=== PATIENT | female | born 1980 | race Two or more races ===

== ENCOUNTER → 2024-04-01 | Outpatient (BNVA) | payer MEDICAID, SELFPAY | END | disposition home or self-care (01) | PROVIDERS: PCP Nurse Practitioner Family; Referring Provider Nurse Practitioner Family; Visit Provider Nurse Practitioner Family | DX: M54.2 Cervicalgia (principal) | CPT/HCPCS: 99213 ==

== ENCOUNTER → 2024-04-08 | Outpatient (BNVA) | payer MEDICAID, SELFPAY | END | disposition home or self-care (01) | PROVIDERS: PCP Nurse Practitioner Family; Referring Provider Nurse Practitioner Family; Visit Provider Nurse Practitioner Family | DX: Z23 Encounter for immunization (principal) | CPT/HCPCS: 90471; 90686; 99213 ==

== ENCOUNTER → 2024-07-04 | Outpatient (BNVA) | payer MEDICAID, SELFPAY | END | disposition home or self-care (01) | PROVIDERS: PCP Nurse Practitioner Family; Referring Provider Nurse Practitioner Family; Visit Provider Nurse Practitioner Family | DX: N39.0 Urinary tract infection, site not specified (principal) | CPT/HCPCS: 81001; 99215 ==

== ENCOUNTER → 2024-07-12 | Outpatient (BNVA) | payer MEDICAID, SELFPAY | END | disposition home or self-care (01) | PROVIDERS: PCP Nurse Practitioner Family; Referring Provider Nurse Practitioner Family; Visit Provider Nurse Practitioner Family | DX: Z71.2 Person consulting for explanation of examination or test findings (principal); D22.9 Melanocytic nevi, unspecified | CPT/HCPCS: 99215 ==

== ENCOUNTER → 2024-07-18 | Outpatient (BNVA) | payer MEDICAID, SELFPAY | END | disposition home or self-care (01) | PROVIDERS: PCP Nurse Practitioner Family; Referring Provider Nurse Practitioner Family; Visit Provider Nurse Practitioner Family | DX: Z71.2 Person consulting for explanation of examination or test findings (principal); E11.9 Type 2 diabetes mellitus without complications; E66.9 Obesity, unspecified; E78.2 Mixed hyperlipidemia; E55.9 Vitamin D deficiency, unspecified | CPT/HCPCS: 99212; G0463 ==

== ENCOUNTER → 2024-08-05 | Outpatient (BNVA) | payer MEDICAID, SELFPAY | END | disposition home or self-care (01) | PROVIDERS: PCP Nurse Practitioner Family; Referring Provider Nurse Practitioner Family; Visit Provider Nurse Practitioner Family | DX: E11.69 Type 2 diabetes mellitus with other specified complication (principal); E66.9 Obesity, unspecified; Z23 Encounter for immunization; E78.2 Mixed hyperlipidemia | CPT/HCPCS: 90471; 90472; 90677; 90715; 99215; J90677 ==

== ENCOUNTER 2024-08-08 08:14 | Outpatient (RCR) | payer MEDICAID, SELFPAY | END 2024-09-07 23:59 | disposition home or self-care (01) | LOC: SCTC 08:14 | PROVIDERS: PCP Nurse Practitioner Family; Referring Provider Nurse Practitioner Family; Visit Provider Nurse Practitioner Family | DX: D50.9 Iron deficiency anemia, unspecified (principal) | CPT/HCPCS: 99213; G0463 ==

== ENCOUNTER → 2024-08-16 | Outpatient (BNVA) | payer MEDICAID, SELFPAY | END | disposition home or self-care (01) | PROVIDERS: PCP Nurse Practitioner Family; Referring Provider Nurse Practitioner Family; Visit Provider Nurse Practitioner Family | DX: E11.69 Type 2 diabetes mellitus with other specified complication (principal); Z71.3 Dietary counseling and surveillance; E66.9 Obesity, unspecified; Z68.35 Body mass index [BMI] 35.0-35.9, adult | CPT/HCPCS: 83036; 99214 ==

== ENCOUNTER → 2024-09-20 | Outpatient (BNVA) | payer MEDICAID, SELFPAY | END | disposition home or self-care (01) | PROVIDERS: PCP Nurse Practitioner Family; Referring Provider Nurse Practitioner Family; Visit Provider Nurse Practitioner Family | DX: E11.69 Type 2 diabetes mellitus with other specified complication (principal); Z71.3 Dietary counseling and surveillance; Z68.30 Body mass index [BMI] 30.0-30.9, adult; N92.0 Excessive and frequent menstruation with regular cycle; E66.9 Obesity, unspecified | CPT/HCPCS: 99214 ==

== ENCOUNTER → 2024-10-18 | Outpatient (BNVA) | payer MEDICAID, SELFPAY | END | disposition home or self-care (01) | PROVIDERS: PCP Internal Medicine; Referring Provider Internal Medicine; Visit Provider Internal Medicine | DX: E11.9 Type 2 diabetes mellitus without complications (principal); E66.9 Obesity, unspecified; D56.3 Thalassemia minor; E55.9 Vitamin D deficiency, unspecified; Z68.34 Body mass index [BMI] 34.0-34.9, adult; E78.2 Mixed hyperlipidemia; E87.20 Acidosis, unspecified | CPT/HCPCS: 99213 ==

== ENCOUNTER → 2024-10-21 | Outpatient (BNVA) | payer MEDICAID, SELFPAY | END | disposition home or self-care (01) | PROVIDERS: PCP Nurse Practitioner Family; Referring Provider Nurse Practitioner Family; Visit Provider Nurse Practitioner Family | DX: E11.9 Type 2 diabetes mellitus without complications (principal); E66.9 Obesity, unspecified; Z68.35 Body mass index [BMI] 35.0-35.9, adult; Z71.3 Dietary counseling and surveillance | CPT/HCPCS: 99213 ==

== ENCOUNTER → 2024-10-25 | Outpatient (BNVA) | payer MEDICAID, SELFPAY | END | disposition home or self-care (01) | PROVIDERS: PCP Nurse Practitioner Family; Referring Provider Nurse Practitioner Family; Visit Provider Nurse Practitioner Family | DX: Z71.2 Person consulting for explanation of examination or test findings (principal); E11.9 Type 2 diabetes mellitus without complications; E66.9 Obesity, unspecified; E78.2 Mixed hyperlipidemia | CPT/HCPCS: 99212; G0463 ==

== ENCOUNTER 2024-11-07 09:49 | Outpatient (RCR) | payer MEDICAID, SELFPAY | END 2024-11-07 23:59 | disposition home or self-care (01) | LOC: SCTC 09:49 | PROVIDERS: PCP Nurse Practitioner Family; Referring Provider Nurse Practitioner Family; Visit Provider Nurse Practitioner Family | DX: D50.9 Iron deficiency anemia, unspecified (principal) | CPT/HCPCS: 99212; G0463 ==

== ENCOUNTER → 2024-11-08 | Outpatient (CLI) | payer MEDICAID, SELFPAY ==
--- NOTE | 2024-11-08 14:30 | XR_ITS ---
Examination: Pelvic ultrasound, transabdominal, complete Technique: Transabdominal ultrasound of the pelvis performed using grayscale imaging Date and time of exam: November 9992024, 1426 hours Comparison January 26, 2023 INDICATIONS: Irregular heavy menses 2 years FINDINGS: Uterus 11.9 cm irregular endometrium 0.6 cm which appears to extend to the myometrium Right ovary 3.0 cm arterial flow Left ovary 3.2 cm arterial flow IMPRESSION: Abnormal endometrium, irregular in contour and appearing to invade or extend into the myometrium Recommend MRI pelvis follow-up pre and postcontrast to exclude early malignant neoplasm of the endometrium
--- NOTE | 2024-11-08 14:30 | XR_ITS ---
Examination: Transvaginal ultrasound of the pelvis, complete Technique: Transvaginal sonographic images pelvis performed using hardy scale imaging Exam date and time: November 08, 2024 1433 hours INDICATIONS: Irregular heavy menses beginning 2 years ago FINDINGS: Uterus 10.1 cm endometrial stripe 2.0 cm The endometrium is irregular and appears to be extending into the myometrium, clinical correlation advised Right ovary 2.9 cm arterial flow 11 mm follicular cyst Left ovary obscured by bowel gas IMPRESSION: Abnormal irregular endometrium which appears to be extending into the myometrium Recommend MRI pelvis follow-up pre and postcontrast to exclude early malignant neoplasm of the endometrium.
== END | disposition home or self-care (01) ==
LOC: CDIM 14:08
PROVIDERS: PCP Nurse Practitioner Family; Referring Provider Nurse Practitioner Family; Visit Provider Nurse Practitioner Family
DX: N85.00 Endometrial hyperplasia, unspecified (principal)
CPT/HCPCS: 76830; 76856

== ENCOUNTER → 2024-11-12 | Outpatient (BNVA) | payer MEDICAID, SELFPAY | END | disposition home or self-care (01) | PROVIDERS: PCP Nurse Practitioner Family; Referring Provider Nurse Practitioner Family; Visit Provider Nurse Practitioner Family | DX: Z71.2 Person consulting for explanation of examination or test findings (principal); N85.9 Noninflammatory disorder of uterus, unspecified | CPT/HCPCS: 99214 ==

== ENCOUNTER → 2024-11-18 | Outpatient (BNVA) | payer MEDICAID, SELFPAY | END | disposition home or self-care (01) | PROVIDERS: PCP Nurse Practitioner Family; Referring Provider Nurse Practitioner Family; Visit Provider Nurse Practitioner Family | DX: E11.9 Type 2 diabetes mellitus without complications (principal); Z71.3 Dietary counseling and surveillance; E66.9 Obesity, unspecified; Z68.35 Body mass index [BMI] 35.0-35.9, adult | CPT/HCPCS: 99213 ==

== ENCOUNTER → 2024-12-16 | Outpatient (BNVA) | payer MEDICAID, SELFPAY | END | disposition home or self-care (01) | PROVIDERS: PCP Nurse Practitioner Primary Care; Referring Provider Nurse Practitioner Primary Care; Visit Provider Nurse Practitioner Primary Care | DX: E11.9 Type 2 diabetes mellitus without complications (principal); E66.9 Obesity, unspecified; E78.2 Mixed hyperlipidemia; Z68.35 Body mass index [BMI] 35.0-35.9, adult | CPT/HCPCS: 99213 ==

== ENCOUNTER → 2024-12-19 | Outpatient (CLI) | payer MEDICAID, SELFPAY ==
--- NOTE | 2024-12-19 10:45 | XR_ITS ---
Examination: Screening digital mammography, bilateral Computer aided detection 3-D breast Tomosynthesis, bilateral Date and time of exam: December 19, 2024 1101 hours Compared to mammograms dating to June 23, 2021 Indication: Screening Technique: Nonmagnified MLO, CC views of the breasts to been obtained, reconstructed from 3-D Tomosynthesis images. R2 computer aided detection program utilized for evaluation of suspicious masses and/or abnormal calcifications. 3-D Tomosynthesis images obtained. Findings: The breasts are heterogeneously dense, which may obscure small masses 15 mm round focal asymmetry upper outer left breast Benign calcifications Impression: BI-RADS Category 0: Incomplete: Need additional imaging evaluation Recommend follow-up spot tomographic views of 15 mm focal asymmetry upper outer left breast as well as left breast sonography to complete the workup
== END | disposition home or self-care (01) ==
LOC: CDIM 10:44
PROVIDERS: PCP Nurse Practitioner Family; Referring Provider Nurse Practitioner Family; Visit Provider Nurse Practitioner Family
DX: Z12.31 Encounter for screening mammogram for malignant neoplasm of breast (principal); N64.89 Other specified disorders of breast
CPT/HCPCS: 77063; 77067

== ENCOUNTER → 2024-12-20 | Outpatient (BNVA) | payer MEDICAID, SELFPAY | END | disposition home or self-care (01) | PROVIDERS: PCP Nurse Practitioner Family; Referring Provider Nurse Practitioner Family; Visit Provider Nurse Practitioner Family | DX: R92.8 Other abnormal and inconclusive findings on diagnostic imaging of breast (principal) | CPT/HCPCS: 99214 ==

== ENCOUNTER 2025-01-01 10:25 | Outpatient (AMB) | payer MEDICAID, SELFPAY ==
[2025-01-01 10:43] VITALS: BP 121/82; PULSE 71; RESP 16; TEMP 36.2; O2SAT 98; BMI 35.2
--- NOTE | 2025-01-01 10:43 | AMB.GYNCLNOT ---
Vital Signs 01/01/25 10:43 Height 1.55 m Height Method Stated Weight 84.538 kg Weight Measurement Method Standing Scale BMI 35.2 BP 121/82 Blood Pressure Source Automatic Cuff Blood Pressure Location Left Upper Arm Position Sitting Respiration 16 Pulse 71 Pulse Source Monitor Temp 97.2 F Temp Source Oral Pulse Oximetry (%) 98 Oxygen Delivery Method Room Air Allergies/Home Meds Allergies & Medications Allergies No Known Allergies Allergy (Verified 01/01/25 10:44) Medication Reconciliation blood sugar diagnostic #100 ea 07/18/24 [Rx Confirmed 01/01/25] blood-glucose meter #1 ea 07/18/24 [Rx Confirmed 01/01/25] lancets #200 ea 07/18/24 [Rx Confirmed 01/01/25] ergocalciferol (vitamin D2) 1,250 mcg (50,000 unit) capsule 1,250 mcg PO QWEEK #4 caps 10/18/24 [Rx Confirmed 01/01/25] ferrous sulfate 325 mg (65 mg iron) tablet 325 mg PO QDAY #30 tabs 10/18/24 [Rx Confirmed 01/01/25] evolocumab 140 mg/mL subcutaneous pen injector (Repatha SureClick) 140 mg subcut .twice a month 30 days #1 mL 12/16/24 [Rx Confirmed 01/01/25] ezetimibe 10 mg tablet 10 mg PO QDAY #90 tabs 12/16/24 [Rx Confirmed 01/01/25] metformin 500 mg tablet 500 mg PO QDAY #90 tabs 12/16/24 [Rx Confirmed 01/01/25] tirzepatide 7.5 mg/0.5 mL subcutaneous pen injector (Mounjaro) 7.5 mg (0.5 mL) subcut QWEEK 4 weeks #2 mL 12/16/24 [Rx Confirmed 01/01/25] Intake Visit Data Collection New Patient or Established: Established Patient (seen at [facility] within 3 years) Reason for Visit:: Seen by Clinical Staff ONLY (RN/MA): No Auxiliary Equipment Operator Required: No Do You Feel Safe at Home: Yes Authorities Contacted: N/A PCP or OBGYN visit in last 3 months: Yes Date of Last PCP or OBGYN visit: 12/20/24 Hx Now: Yes Are you currently on any form of Control: No Pain Present Currently: No Pain Scale Used: Guerra-Smith/Numerical Pain scale:: 0 Smoking Status Smoking Status: Never smoker Would you like additional Smoking Cessation Counseling?: No 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 Menstrual regularity: regular Flow: normal Monthly: Yes Age at menarche: 12 Menopausal: No Currently sexually 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 1. Little interest or pleasure in doing things: not at all 2. Feeling down, depressed, or hopeless: not at all Total score: 0 PHQ-9 3. Trouble falling or staying asleep, or sleeping too much: Not at all 4. Feeling tired or having little energy: Not at all 5. Poor appetite or overeating: Not at all 6. Feeling bad about yourself - or that you are a failure or have let yourself or your family down: Not at all 7. Trouble concentrating on things, such as reading the newspaper or watching television: Not at all 8. Moving or speaking so slowly that other people could have noticed? - Or the opposite - being so fidgety or restless that you have been moving around a lot more than usual: not at all 9. Thoughts that you would be better off or of hurting yourself in some way: Not at all Total score: 0 If you checked off any problems, how difficult have these problems made it for you to do your work, take care of things at home, or get along with other people?: not difficult at all Source: Developed by Drs. Kristian Khan, Neeru Salcedo, Chris Rosales and colleagues, with an educational andrew from [employer]. Depression screen completed yes Social History Living Situation History Marital Status: Single Lives With: Spouse Housing: House Tobacco History Smoking Status: Never smoker Second Hand Smoke Exposure: No Alcohol History Alcohol Intake: Current Alcohol Intake Frequency: holidays/special occasions only Substance Use History Substance Use: NONE Domestic Abuse History Do You Feel Safe at Home: Yes History of Present Illness HPI Narrative I, Satnam Shabbir, have obtained verbal consent from the patient, to be recorded during this encounter which may include, but not limited to, medical history, examination, treatment plans, and relevant health information.? Patient was informed that recording will be read and reviewed by myself before inclusion in the medical chart. The patient is a 44-year-old female presenting for an inflammatory disease of the uterus consult. She was seen by a different provider at the [facility] and was referred here due to findings on a transvaginal ultrasound. The ultrasound revealed a uterus measuring 10.1 cm, an endometrial stripe of 2 cm, and an irregular endometrium that appears to be extending into the myometrium. Clinical correlation was advised. The right ovary measured 2.9 cm with arterial flow and an 11 mm follicular cyst. The left ovary was obscured by bowel gas. These findings are highly suspicious for a malignant neoplasm of the endometrium, indicating the need for an endometrial biopsy. She has been experiencing irregular bleeding and anemia. Her menstrual cycles have been regular, and she has not yet reached menopause. Gynecological History discussed: - Cycle length: Regular RESULTS Imaging - Transvaginal ultrasound: Uterus measuring 10.1 cm, endometrial stripe of 2 cm. Endometrium is irregular and appears to be extending into the myometrium. Right ovary 2.9 cm with arterial flow, 11 mm follicular cyst. Left ovary obscured by bowel gas. Exam General General Appearance: alert, in no apparent distress and healthy appearing Head Head exam: atraumatic Neck Neck exam: Present normal inspection and trachea midline Chest Chest inspection: Present normal inspection and symmetric chest wall rise External exam: Present normal external exam; Absent tenderness Neuro Neurological exam: Present oriented X3 Psych Psychiatric exam: Present normal affect and normal mood Office Procedures OBC Clinic LOC & Office Proc's Nursing/Assessment Patient Status: Established Patient OB Clinic Nursing Assessment: Medication Reconciliation, Update PMH in EMR and Vital Signs OB Clinic Coordination of Care: Education Complex Pt/Fam, Consent,records obtained, informed consent, Lab and Imaging orders and Staff clarify orders Special Needs: Heart tones Established Patient Charge Established Patient Point Assignment: 110 Established Patient Point Charge: EP Level 3 (80-115) Assessment & Plan Diagnosis / Problem List (1) Endometrial hyperplasia: Status: Acute Plan 1. Inflammatory disease of the uterus: - The ultrasound results indicate a thickened endometrium extending into the myometrium, which is concerning for potential uterine cancer. - The ultrasound findings include a uterus measuring 10.1 cm, an endometrial stripe of 2 cm, and an irregular endometrium extending into the myometrium. Right ovary measures 2.9 cm with arterial flow and an 11 mm follicular cyst. Left ovary obscured by bowel gas. - A biopsy of the uterus under anesthesia in the hospital is recommended. The procedure will involve inserting a camera to examine the uterus and obtain biopsies. An MRI is scheduled for 01/07/2025 to gather more information. - The biopsy will be scheduled as soon as insurance approval is obtained, with an expected wait time of less than a week once approved.
== END 2025-01-01 10:52 | disposition home or self-care (01) ==
LOC: HODSOBC 10:25
PROVIDERS: PCP Nurse Practitioner Family; Referring Provider Nurse Practitioner Family; Supervising Provider Obstetrics & Gynecology; Visit Provider Obstetrics & Gynecology
DX: N85.00 Endometrial hyperplasia, unspecified (principal); N83.01 Follicular cyst of right ovary
CPT/HCPCS: 99213; G0463

== ENCOUNTER 2025-01-22 08:13 | Outpatient (AMB) | payer MEDICAID, SELFPAY ==
[2025-01-22 08:32] VITALS: BP 110/79; PULSE 71; RESP 17; TEMP 36.3; O2SAT 98; BMI 35.3
--- NOTE | 2025-01-22 08:32 | GYNCLNT_ITS ---
Vital Signs 01/22/25 08:32 Height 1.55 m Height Method Stated Weight 84.878 kg Weight Measurement Method Standing Scale BMI 35.3 BP 110/79 Blood Pressure Source Automatic Cuff Blood Pressure Location Right Upper Arm Position Sitting Respiration 17 Pulse 71 Pulse Source Monitor Temp 97.4 F Temp Source Temporal Artery Scan Pulse Oximetry (%) 98 Oxygen Delivery Method Room Air Allergies/Home Meds Allergies & Medications Allergies No Known Allergies Allergy (Verified 01/22/25 08:35) Medication Reconciliation blood sugar diagnostic #100 ea 07/18/24 [Rx Confirmed 01/22/25] blood-glucose meter #1 ea 07/18/24 [Rx Confirmed 01/22/25] lancets #200 ea 07/18/24 [Rx Confirmed 01/22/25] ergocalciferol (vitamin D2) 1,250 mcg (50,000 unit) capsule 1,250 mcg PO QWEEK #4 caps 10/18/24 [Rx Confirmed 01/22/25] ferrous sulfate 325 mg (65 mg iron) tablet 325 mg PO QDAY #30 tabs 10/18/24 [Rx Confirmed 01/22/25] tirzepatide 7.5 mg/0.5 mL subcutaneous pen injector (Mounjaro) 7.5 mg subcut QWEEK 01/17/25 [History Confirmed 01/22/25] Intake Visit Data Collection New Patient or Established: Established Patient (seen at [facility] within 3 years) Reason for Visit:: PRE OP Seen by Clinical Staff ONLY (RN/MA): No Dredge Lever Operator Required: Yes Dredge Lever Operator's name/title: LANA VIDAL MA Do You Feel Safe at Home: Yes Authorities Contacted: N/A PCP or OBGYN visit in last 3 months: Yes Date of Last PCP or OBGYN visit: 01/17/25 Hx Now: No Are you currently on any form of Control: No Pain Present Currently: No Smoking Status Smoking Status: Never smoker 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 Menstrual regularity: regular Flow: heavy Monthly: Yes How many days does period last: 5 Age at menarche: 12 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 1. Little interest or pleasure in doing things: not at all 2. Feeling down, depressed, or hopeless: not at all Total score: 0 PHQ-9 3. Trouble falling or staying asleep, or sleeping too much: Not at all 4. Feeling tired or having little energy: Not at all 5. Poor appetite or overeating: Not at all 6. Feeling bad about yourself - or that you are a failure or have let yourself or your family down: Not at all 7. Trouble concentrating on things, such as reading the newspaper or watching television: Not at all 8. Moving or speaking so slowly that other people could have noticed? - Or the opposite - being so fidgety or restless that you have been moving around a lot more than usual: not at all 9. Thoughts that you would be better off or of hurting yourself in some way: Not at all Total score: 0 If you checked off any problems, how difficult have these problems made it for you to do your work, take care of things at home, or get along with other people?: not difficult at all Source: Developed by Drs. Kristian Khan, Neeru Salcedo, Chris Rosales and colleagues, with an educational andrew from [employer]. Depression screen completed yes Social History Living Situation History Marital Status: Lives With: Spouse Housing: House Tobacco History Smoking Status: Never smoker Second Hand Smoke Exposure: No Alcohol History Alcohol Intake: Current Alcohol Intake Frequency: holidays/special occasions only Substance Use History Substance Use: NONE Domestic Abuse History Do You Feel Safe at Home: Yes History of Present Illness HPI Narrative Selina Tomlinson presents for a preoperative visit in preparation for a hysteroscopic guided endometrial biopsy scheduled for tomorrow. The patient reports taking her prescribed medications and mentions experiencing bacterial- related food smell issues. She has completed all required preoperative blood work. The patient had questions about the planned procedure, specifically asking about burning procedures and uterus removal, which were clarified as not being part of tomorrow's biopsy procedure. The biopsy is being performed to obtain tissue samples before determining next treatment steps, as different treatments would be indicated depending on whether precancerous or cancerous changes are found. ROS: Not documented. Exam General General Appearance: alert, in no apparent distress and healthy appearing Head Head exam: atraumatic Neck Neck exam: Present normal inspection and trachea midline Chest Chest inspection: Present normal inspection and symmetric chest wall rise External exam: Present normal external exam; Absent tenderness Neuro Neurological exam: Present oriented X3 Psych Psychiatric exam: Present normal affect and normal mood Office Procedures OBC Clinic LOC & Office Proc's Nursing/Assessment Patient Status: Established Patient OB Clinic Nursing Assessment: Medication Reconciliation, Update PMH in EMR and Vital Signs OB Clinic Coordination of Care: Complex Care and Chronic Disease 1-5, Education Complex Pt/Fam, Consent,records obtained, informed consent, Results/Orders obtained and Staff clarify orders Established Patient Charge Established Patient Point Assignment: 95 Established Patient Point Charge: EP Level 3 (80-115) Assessment & Plan Diagnosis / Problem List (1) Endometrial hyperplasia: Status: Acute (2) Acquired abnormality of uterus: Status: Acute Plan Preoperative evaluation for hysteroscopic endometrial biopsy: - Patient scheduled for hysteroscopic guided endometrial biopsy. - Diagnostic intervention to obtain tissue samples from the uterus using camera guidance. - Biopsy results will determine next steps in management as treatment approach varies significantly if precancerous or cancerous tissue is identified. - Patient has completed required preoperative blood work and appears ready for procedure. Plan: - Proceed with hysteroscopic guided endometrial biopsy as scheduled. - Procedure expected to take approximately 10 minutes. - Patient will be discharged home same day. - Biopsy results will be available in approximately 3 days. - Call patient with biopsy results once available. - Further treatment decisions will be based on biopsy findings.
== END 2025-01-22 09:10 | disposition home or self-care (01) ==
LOC: HODSOBC 08:13
PROVIDERS: Supervising Provider Obstetrics & Gynecology; Visit Provider Obstetrics & Gynecology
DX: N85.00 Endometrial hyperplasia, unspecified (principal); N85.8 Other specified noninflammatory disorders of uterus; E10.9 Type 1 diabetes mellitus without complications; Z79.85 Long-term (current) use of injectable non-insulin antidiabetic drugs
CPT/HCPCS: 99213; G0463

== ENCOUNTER 2025-01-23 05:45 | Day surgery (SDC) | payer MEDICAID, SELFPAY ==
[2025-01-17 07:51] VITALS: BMI 33.2
--- NOTE | 2025-01-17 08:00 | EKG_ITS ---
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
[2025-01-17 08:27] LABS: Basophils # (Auto) 0.0 Thou/mm3 (0.0-0.2); Basophils % (Auto) 0 % (0-2.5); Eosinophils # (Auto) 0.1 Thou/mm3 (0.0-0.5); Eosinophils % (Auto) 1 % (0-10); Hematocrit 38.8 % (36.0-46.0); Hemoglobin 12.5 g/dL (12.0-16.0); Immature Granulocytes Auto 0.03 Thou/mm3 (0.00-0.00); Lymphocytes # (Auto) 3.7 Thou/mm3 (1.0-4.8); Lymphocytes % (Auto) 32 % (10-50); Mean Corpuscular HGB Conc 32.2 g/dl (31.0-37.0); Mean Corpuscular Hemoglobin 22.4 pg (25.0-35.0); Mean Corpuscular Volume 70 fL (80-100); Monocytes # (Auto) 0.8 Thou/mm3 (0.0-0.8); Monocytes % (Auto) 6 % (0-12); Neutrophils # (Auto) 7.1 Thou/mm3 (1.8-7.7); Neutrophils % (Auto) 61 % (37-80); Nucleated Red Blood Cell # 0.00 Thou/mm3 (0.00-0.00); Nucleated Red Blood Cell % 0 /100 WBC (0); Platelet Count 366 Thou/mm3 (140-440); RDW Standard Deviation 38.0 fL (36.4-46.3); Red Blood Count 5.58 Miln/mm3 (4.00-5.20); White Blood Count 11.7 Thou/mm3 (3.6-11.0)
[2025-01-17 08:43] LABS: Alanine Aminotransferase 22 U/L (10-49); Albumin, Serum 5.0 gm/dL (3.5-5.0); Albumin/Globulin Ratio 1.4 (1.2-2.2); Alkaline Phosphatase 106 U/L (46-116); Anion Gap 10 (7-16); Aspartate Amino Transferase 26 U/L (0-34); BUN/Creatinine Ratio 14 Ratio (12-20); Bilirubin,Total 0.5 mg/dL (0.3-1.2); Blood Urea Nitrogen 13 mg/dL (9-23); Calcium 9.7 mg/dL (8.3-10.6); Calcium (Corrected) 9.7 mg/dL (8.5-10.1); Carbon Dioxide 26.1 mMol/L (20.0-31.0); Chloride 102 mMol/L (98-107); Creatinine (Component) 0.9 mg/dL (0.6-1.3); Estimated Creatinine Clearance 82.4 mL/min (>60); Globulin 3.7 gm/dL (2.3-3.5); Glucose 95 mg/dL (74-106); Osmolality,Calculated 275 (275-295); Potassium 4.1 mMol/L (3.4-5.1); Sodium 138 mMol/L (136-145); Total Protein 8.7 gm/dL (5.7-8.2); eGFR > 60 See Note
[2025-01-17 08:46] LABS: HCG,Qualitative Serum Negative
--- NOTE | 2025-01-22 13:01 | SUR.PREOP ---
Pt notified to come in at 0545 tomorrow for surgery.
[2025-01-23] VITALS (7 sets, daily range): BP systolic 105–128; BP diastolic 66–81; PULSE 71–87; RESP 12–16; TEMP 36.2–36.6; O2SAT 96–99; BMI 34.4
--- NOTE | 2025-01-23 08:22 | PD.GYNPROC ---
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 The patient was brought to the procedure room and identified with two patient identifiers. She was placed in the dorsal lithotomy position. The perineum was prepped and draped in sterile fashion. A bimanual exam was performed to assess uterine position. A self-retaining speculum was inserted into the vagina, and the cervix was visualized. The cervix was grasped with a tenaculum or atraumatic forceps and placed under traction. A uterine sound was used to assess uterine depth and direction. The cervix was then serially dilated to 5?7 mm. The hysteroscope was primed with sterile fluid and introduced into the uterine cavity under direct visualization. And a systematic inspection was performed. The endometrium appeared thickened. No obvious intracavitary mass or synechiae were noted. The tubal ostia were visualized bilaterally. An endometrial sampling device was introduced under hysteroscopic guidance. Targeted biopsies were obtained from the anterior, posterior, and fundal aspects of the endometrial cavity. All specimens were sent to pathology. The hysteroscope and instruments were removed. The cervix was inspected and noted to be hemostatic. The patient tolerated the procedure well and was transferred to recovery in stable condition. All instruments and supplies were accounted for. Estimated blood loss (ml): 5 Complications: none Surgical staff Operation Date: 01/23/25 07:35 <No data on this case meets the specified criteria> Diagnosis Discharge Diagnosis (1) Endometrial hyperplasia: Status: Acute Problem List Completed Was Problem List Reviewed/Reconciled?: Yes
--- NOTE | 2025-01-23 08:32 | SUR.PHASEI ---
0832: Pt. AAOx4, vitals stable, breathing unlabored, no complaint of pain or nausea, peripad in place no active bleed noted, report received from MD Kulkarni and Sarah IBARRA.
--- NOTE | 2025-01-23 09:28 | SUR.PHASEII ---
0928: Pt. AAOx4, vitals stable, breathing unlabored, no complaint of pain or nausea, peripad in place CDI no active bleed noted, pt. tolerated sips of water well, pt. ambulated to wheelchair with steady gait and no assist, no complications. Gave discharge instructions to the pt. and her ride using a ldr rn, pt. and her ride both verbalized understanding and had no further questions. Pt. left with all personal belongings.
== END 2025-01-23 09:28 | disposition home or self-care (01) ==
PROVIDERS: PCP Nurse Practitioner Family; Referring Provider Obstetrics & Gynecology; Visit Provider Obstetrics & Gynecology
PROC: 0U5B8ZZ Destruction of Endometrium, Via Natural or Artificial Opening Endoscopic (ICD-10-PCS; CPT 58563; principal; 2025-01-23 07:30)
DX: N85.00 Endometrial hyperplasia, unspecified (principal); N92.0 Excessive and frequent menstruation with regular cycle; Z01.810 Encounter for preprocedural cardiovascular examination
CPT/HCPCS: 58558; 36415; 80053; 84703; 85025; 86850; 86900; 86901; 93005; A4217; A4649; J0131; J1100; J2371; J2704; J2765; J3010; J3490

== ENCOUNTER → 2025-01-24 | Outpatient (CLI) | payer MEDICAID, SELFPAY ==
[2025-01-23 12:36] LABS: HCG Qualitative,Urine Negative
--- NOTE | 2025-01-24 08:30 | XR_ITS ---
Examination: MRI pelvis with intravenous contrast. MRI pelvis without intravenous contrast. Date and time of exam: January 24, 2025, 0857 hours INDICATIONS: Diagnosis acquired abnormality of uterus other specified noninflammatory disorders of the uterus, transvaginal pelvic sonogram November 08, 2024 abnormal irregular thickened endometrium which appears to extend into the myometrium on pelvic sonogram November 08, 2024 Technique: Multiple axial, sagittal and coronal sections of the pelvis obtained. Transverse images, TR 6020, TE 107. T1 weighted transverse images, TR 582, TE 9.5. T2-weighted sagittal images, TR 4000, TE 105. T2-weighted sagittal images, TR 4000, TE 5. Coronal images, TR 4210, TE 107. Axial and coronal images are obtained post 16 cc intravenous injection, gadolinium. Findings: Retroverted uterus, 10 cm x 4.9 cm x 4.5 cm Endometrial stripe measures 15 mm with minimal irregularity No enhancing discrete uterine mass Mild free fluid in the pelvis Right ovary 3.0 x 2.9 cm with 23 x 23 mm simple cyst Left ovary is not visualized IMPRESSION: Endometrial stripe 15 mm with minimal irregularity, findings are not diagnostic for malignant neoplasm of the endometrium Recommend 6-month follow-up transvaginal pelvic sonography
== END | disposition home or self-care (01) ==
LOC: SMRI 08:14
PROVIDERS: Referring Provider Nurse Practitioner Family; Visit Provider Nurse Practitioner Family
DX: N85.8 Other specified noninflammatory disorders of uterus (principal); Z32.00 Encounter for pregnancy test, result unknown
CPT/HCPCS: 72197; 81025; A9577

== ENCOUNTER → 2025-01-27 | Outpatient (BNVA) | payer MEDICAID, SELFPAY | END | disposition home or self-care (01) | PROVIDERS: PCP Nurse Practitioner Family; Referring Provider Nurse Practitioner Family; Visit Provider Nurse Practitioner Family | DX: E11.9 Type 2 diabetes mellitus without complications (principal); E66.9 Obesity, unspecified; Z28.21 Immunization not carried out because of patient refusal | CPT/HCPCS: 83036; 99214 ==

== ENCOUNTER → 2025-01-30 | Outpatient (BNVA) | payer MEDICAID, SELFPAY | END | disposition home or self-care (01) | PROVIDERS: PCP Nurse Practitioner Family; Referring Provider Nurse Practitioner Family; Visit Provider Nurse Practitioner Family | DX: Z71.1 Person with feared health complaint in whom no diagnosis is made (principal); N85.00 Endometrial hyperplasia, unspecified; Z28.21 Immunization not carried out because of patient refusal | CPT/HCPCS: 99213 ==

== ENCOUNTER → 2025-02-26 | Outpatient (BNVA) | payer MEDICAID, SELFPAY | END | disposition home or self-care (01) | PROVIDERS: PCP Nurse Practitioner Family; Referring Provider Nurse Practitioner Family; Visit Provider Nurse Practitioner Family | DX: Z00.01 Encounter for general adult medical examination with abnormal findings (principal); E78.2 Mixed hyperlipidemia; E55.9 Vitamin D deficiency, unspecified; E66.811 Obesity, class 1; Z68.34 Body mass index [BMI] 34.0-34.9, adult; Z28.21 Immunization not carried out because of patient refusal; Z13.29 Encounter for screening for other suspected endocrine disorder; Z11.3 Encounter for screening for infections with a predominantly sexual mode of transmission | CPT/HCPCS: 99173; 99214; 99396; G0439 ==

== ENCOUNTER → 2025-02-28 | Outpatient (BNVA) | payer MEDICAID, SELFPAY | END | disposition home or self-care (01) | PROVIDERS: PCP Nurse Practitioner Family; Referring Provider Nurse Practitioner Family; Visit Provider Nurse Practitioner Family | DX: E11.9 Type 2 diabetes mellitus without complications (principal); E66.811 Obesity, class 1; Z68.34 Body mass index [BMI] 34.0-34.9, adult | CPT/HCPCS: 99213 ==

== ENCOUNTER → 2025-03-04 | Outpatient (BNVA) | payer MEDICAID, SELFPAY | END | disposition home or self-care (01) | PROVIDERS: PCP Nurse Practitioner Family; Referring Provider Nurse Practitioner Family; Visit Provider Nurse Practitioner Family | DX: Z71.2 Person consulting for explanation of examination or test findings (principal); Z28.21 Immunization not carried out because of patient refusal; E78.2 Mixed hyperlipidemia; E55.9 Vitamin D deficiency, unspecified; E11.9 Type 2 diabetes mellitus without complications; Z22.330 Carrier of Group B streptococcus; D56.3 Thalassemia minor; E66.9 Obesity, unspecified; Z68.35 Body mass index [BMI] 35.0-35.9, adult | CPT/HCPCS: 99213 ==

== ENCOUNTER → 2025-03-10 | Outpatient (BNVA) | payer MEDICAID, SELFPAY | END | disposition home or self-care (01) | PROVIDERS: PCP Nurse Practitioner Family; Referring Provider Nurse Practitioner Family; Visit Provider Nurse Practitioner Family | DX: Z76.0 Encounter for issue of repeat prescription (principal); E11.9 Type 2 diabetes mellitus without complications; E66.9 Obesity, unspecified | CPT/HCPCS: 99212; G0463 ==

== ENCOUNTER → 2025-03-27 | Outpatient (BNVA) | payer MEDICAID, SELFPAY | END | disposition home or self-care (01) | PROVIDERS: PCP Nurse Practitioner Family; Referring Provider Nurse Practitioner Family; Visit Provider Nurse Practitioner Family | DX: Z71.2 Person consulting for explanation of examination or test findings (principal); N39.0 Urinary tract infection, site not specified; B96.20 Unspecified Escherichia coli [E. coli] as the cause of diseases classified elsewhere; N94.10 Unspecified dyspareunia | CPT/HCPCS: 99212; G0463 ==

== ENCOUNTER → 2025-03-28 | Outpatient (BNVA) | payer MEDICAID, SELFPAY | END | disposition home or self-care (01) | PROVIDERS: PCP Nurse Practitioner Family; Referring Provider Nurse Practitioner Family; Visit Provider Nurse Practitioner Family | DX: E11.9 Type 2 diabetes mellitus without complications (principal); E66.9 Obesity, unspecified; Z68.34 Body mass index [BMI] 34.0-34.9, adult; Z76.0 Encounter for issue of repeat prescription | CPT/HCPCS: 99213 ==

== ENCOUNTER 2025-03-31 08:59 | Outpatient (RCR) | payer MEDICAID, SELFPAY | END 2025-04-09 23:59 | disposition home or self-care (01) | LOC: SCTC 08:59 | PROVIDERS: PCP Nurse Practitioner Family; Referring Provider Nurse Practitioner Family; Visit Provider Nurse Practitioner Family | DX: D50.9 Iron deficiency anemia, unspecified (principal); D72.829 Elevated white blood cell count, unspecified | CPT/HCPCS: 99212; G0463 ==

== ENCOUNTER → 2025-04-04 | Outpatient (BNVA) | payer MEDICAID, SELFPAY | END | disposition home or self-care (01) | PROVIDERS: PCP Nurse Practitioner Family; Referring Provider Nurse Practitioner Family; Visit Provider Nurse Practitioner Family | DX: Z00.00 Encounter for general adult medical examination without abnormal findings (principal) ==